=== PATIENT | female | born 1980 | race Caucasian/White ===

== ENCOUNTER 2018-04-22 18:56 | Inpatient (IN) ==
[2018-04-22 20:05] LABS: Bilirubin,Urine Negative (Negative); Blood,Urine Negative (Negative); Clarity,Urine Cloudy (Clear); Color,Urine Yellow (Yellow); Glucose,Urine (UA) Normal (Normal); Ketones,Urine Negative (Negative); Leukocyte Esterase,Urine Moderate (Negative); Nitrite,Urine Positive (Negative); Protein,Urine Trace mg/dL (Neg-Trace); Specific Gravity,Urine 1.023 (1.010-1.025); Urobilinogen,Urine Normal (Normal)
[2018-04-22 20:09] LABS: Bacteria,Urine Many per hpf (None-Few); Hyaline Casts,Urine None Seen per lpf (None-Few); Squamous Epithelial Cell,Urine Many per lpf (None-Few); WBC,Urine TNTC per hpf (0-3)
[2018-04-22 20:15] LABS: Amphetamine Screen,Urine Negative ng/mL (Cutoff=1000); Barbiturate Screen,Urine Negative ng/mL (Cutoff=200); Benzodiazepines Screen,Urine Negative ng/mL (Cutoff=200); Cannabinoid Screen,Urine Negative ng/mL (Cutoff = 50); Cocaine Screen,Urine Negative ng/mL (Cutoff= 300); Opiate Screen,Urine Negative ng/mL (Cutoff=300); Phencyclidine Screen,Urine Negative ng/mL (Cutoff=25)
--- NOTE | 2018-04-22 20:49 | Emergency Department Note ---
Disposition Clinical Impression: Auditory hallucination UTI (urinary tract infection) Qualifiers: Urinary tract infection type: acute cystitis Hematuria presence: without hematuria Qualified Code(s): N30.00 - Acute cystitis without hematuria Disposition: Still a Patient Condition: Good Referrals: NONE,PCP [Primary Care Provider] - Forms: ED Satisfaction Letter Time of Disposition: 21:37 General Adult HPI - General Chief complaint: ED Psychiatric Symptoms Stated complaint: Psych eval Time Seen by Provider: 04/22/18 19:32 Source: patient Limitations: no limitations Nursing Notes Reviewed: Yes Vital Signs Reviewed: Yes - History of Present Illness HPI Narrative: Patient presents with her family and the stories that she does have a history of schizophrenia and has not used medications and the last several months did see mental health about 5 days ago and they said they will call in medicine but when they showed up at the pharmacy there were no medications there and the patient has been crying all day according to the patient's mother who is here. The patient does live with her mother. There are other family members here also. Patient at one point said she had some suicidal thoughts and she does have auditory hallucinations however later states that she did not have suicidal thoughts so this is slightly hard to assess. She did make one comment earlier today about not getting around much longer but the family did not know exactly what she meant by that. Patient states he does not have a suicidal plan. She denies any pain in the head, neck, chest, abdomen or back. No fever or vomiting. No blood in the urine or stool. Social history: Smoker, no alcohol or drugs Pain Scale: 0 - Related Data Home Medications Medication Instructions Recorded Confirmed Gabapentin [Neurontin] 600 mg PO TID 03/22/18 03/22/18 Mirtazapine 45 mg PO HS 03/22/18 03/22/18 Propranolol HCl 40 mg PO TID 03/22/18 03/22/18 lamoTRIgine [Lamotrigine] 200 mg PO HS 03/22/18 03/22/18 Previous Rx's Medication Instructions Recorded cephALEXin [Keflex] 500 mg PO BID #10 capsule 03/24/18 Allergies Allergy/AdvReac Type Severity Reaction Status Date / Time No Known Allergies Allergy Verified 05/05/17 14:45 All systems ED: reviewed and negative except as stated. Past Medical History - Past Medical History Medical history: Reports: no medical history Surgical history: Reports: no surgical history Psychiatric history: Reports: anxiety, depression, other - Social History Smoking Status: Current every day smoker Smokeless Tobacco Status: No Alcohol use: Reports: none Drug use: Reports: none Physical Exam CONSTITUTIONAL: Alert and oriented X3, and she does know the year and the name of the hospital, she is very soft-spoken, poor eye contact, well-nourished, well appearing, in no apparent distress HEAD: Normocephalic; atraumatic. EYES: PERRL, no scleral icterus. NOSE: The nose is normal in appearance without rhinorrhea RESP: Normal chest excursion with respiration; breath sounds clear and equal bilaterally; no wheezes, rhonchi, or rales CARD: Regular rhythm, without murmurs, rub or gallop ABD: Non-distended; non-tender, soft,without rigidity, rebound or guarding SKIN: Normal for age and race; warm and dry; there are intermittent scattered noninfected excoriated lesions on her back - General Limitations: no limitations General appearance: alert, in no apparent distress Course Vital Signs Temperature 98.1 F 04/22/18 19:06 Pulse Rate 80 04/22/18 19:06 Respiratory Rate 18 04/22/18 19:06 Blood Pressure 132/77 04/22/18 19:06 O2 Sat by Pulse Oximetry 97 04/22/18 19:06 Temperature 98.1 F 04/22/18 19:06 Pulse Rate 80 04/22/18 19:06 Respiratory Rate 18 04/22/18 19:06 Blood Pressure 132/77 04/22/18 19:06 O2 Sat by Pulse Oximetry 97 04/22/18 19:06 Oxygen Delivery Oxygen Delivery Room Air Medical Decision Making - MDM Narrative Medical decision making narrative: Is difficult to ascertain whether this patient has suicidal ideation and she certainly does have auditory hallucinations and has been crying all day so I will get an initial assessment here as well as asked the psychiatric services to assess the patient and let and their expertise to recommendations for further disposition. 2049 - Lab Data Result diagrams: 04/22/18 20:25 04/22/18 20:25 Lab Results 04/22/18 04/22/18 04/22/18 Range/Units 19:20 19:20 20:25 WBC 7.7 (4.3-11.1) K/mcL RBC 4.72 (3.82-4.97) M/mcL Hgb 14.0 (11.5-15.4) g/dL Hct 42.7 (35.3-44.9) % MCV 90.5 (83.0-100.0) fL MCH 29.7 (28.0-33.3) pg MCHC 32.8 (31.6-35.5) g/dL RDW 12.8 (11.5-14.5) % Plt Count 197 (140-400) K/mcL MPV 11.5 (9.4-12.4) fL Immature Gran % 0.1 (0-4) % Seg Neutrophils % 57.8 % Lymphocytes % 34.0 % Monocytes % 6.8 % Eosinophils % 0.9 % Basophils % 0.4 % Neutrophils # 4.5 (1.6-8.9) K/mcL Lymphocytes # 2.6 (0.6-4.6) K/mcL Monocytes # 0.5 (0.0-1.3) K/mcL Eosinophils # 0.1 (0.0-0.6) K/mcL Basophils # 0.0 (0.0-0.2) K/mcL Sodium (136-145) mEq/L Potassium (3.5-5.1) mEq/L Chloride (98-107) mEq/L Carbon Dioxide (23-29) mEq/L BUN (6-20) mg/dL Creatinine (0.60-1.20) mg/dL Est GFR ( Amer) (> 60) Est GFR (Non-Af Amer) (> 60) BUN/Creatinine Ratio (6-26) Glucose (70-105) mg/dL Calculated Osmolality (280-300) Calcium (8.6-10.3) mg/dL Urine Color Yellow (Yellow) Urine Clarity Cloudy A (Clear) Urine pH 6.0 (5.0-8.0) pH Units Ur Specific [place] 1.023 (1.010-1.025) Urine Protein Trace (Neg-Trace) mg/dL Urine Glucose (UA) Normal (Normal) mg/dL Urine Ketones Negative (Negative) mg/dL Urine Blood Negative (Negative) Urine Nitrite Positive A (Negative) Urine Bilirubin Negative (Negative) Urine Urobilinogen Normal (Normal) mg/dL Ur Leukocyte Esterase Moderate H (Negative) Urine Microscopic RBC 5-15 H (0-3) per hpf Urine Microscopic WBC TNTC H (0-3) per hpf Ur Squamous Epith Cells Many H (None-Few) per lpf Urine Bacteria Many H (None-Few) per hpf Hyaline Casts None Seen (None-Few) per lpf Salicylates (15.0-30.0) mg/dL Urine Opiates Screen Negative (Qnkbjo=480) ng/mL Acetaminophen (10-20) mcg/mL Ur Barbiturates Screen Negative (Bxmnef=409) ng/mL Ur Phencyclidine Scrn Negative (Cutoff=25) ng/mL Ur Amphetamines Screen Negative (Xqquic=5053) ng/mL U Benzodiazepines Scrn Negative (Gasadj=216) ng/mL Urine Cocaine Screen Negative (Cutoff= 300) ng/mL U Marijuana (THC) Screen Negative (Cutoff = 50) ng/mL Ur Drug Screen Interp See Below Ethyl Alcohol (Less than 10) mg/dL 04/22/18 Range/Units 20:25 WBC (4.3-11.1) K/mcL RBC (3.82-4.97) M/mcL Hgb (11.5-15.4) g/dL Hct (35.3-44.9) % MCV (83.0-100.0) fL MCH (28.0-33.3) pg MCHC (31.6-35.5) g/dL RDW (11.5-14.5) % Plt Count (140-400) K/mcL MPV (9.4-12.4) fL Immature Gran % (0-4) % Seg Neutrophils % % Lymphocytes % % Monocytes % % Eosinophils % % Basophils % % Neutrophils # (1.6-8.9) K/mcL Lymphocytes # (0.6-4.6) K/mcL Monocytes # (0.0-1.3) K/mcL Eosinophils # (0.0-0.6) K/mcL Basophils # (0.0-0.2) K/mcL Sodium 139 (136-145) mEq/L Potassium 4.3 (3.5-5.1) mEq/L Chloride 106 (98-107) mEq/L Carbon Dioxide 26 (23-29) mEq/L BUN 12 (6-20) mg/dL Creatinine 0.74 (0.60-1.20) mg/dL Est GFR ( Amer) > 60 (> 60) Est GFR (Non-Af Amer) > 60 (> 60) BUN/Creatinine Ratio 16 (6-26) Glucose 113 H (70-105) mg/dL Calculated Osmolality 289 (280-300) Calcium 9.7 (8.6-10.3) mg/dL Urine Color (Yellow) Urine Clarity (Clear) Urine pH (5.0-8.0) pH Units Ur Specific [place] (1.010-1.025) Urine Protein (Neg-Trace) mg/dL Urine Glucose (UA) (Normal) mg/dL Urine Ketones (Negative) mg/dL Urine Blood (Negative) Urine Nitrite (Negative) Urine Bilirubin (Negative) Urine Urobilinogen (Normal) mg/dL Ur Leukocyte Esterase (Negative) Urine Microscopic RBC (0-3) per hpf Urine Microscopic WBC (0-3) per hpf Ur Squamous Epith Cells (None-Few) per lpf Urine Bacteria (None-Few) per hpf Hyaline Casts (None-Few) per lpf Salicylates < 2.5 L (15.0-30.0) mg/dL Urine Opiates Screen (Danrxu=190) ng/mL Acetaminophen < 10 L (10-20) mcg/mL Ur Barbiturates Screen (Ykwecl=056) ng/mL Ur Phencyclidine Scrn (Cutoff=25) ng/mL Ur Amphetamines Screen (Amhuun=7832) ng/mL U Benzodiazepines Scrn (Yaddha=229) ng/mL Urine Cocaine Screen (Cutoff= 300) ng/mL U Marijuana (THC) Screen (Cutoff = 50) ng/mL Ur Drug Screen Interp Ethyl Alcohol < 10 (Less than 10) mg/dL
[2018-04-22 20:51] LABS: Basophils % 0.4 %; Eosinophils # 0.1 K/mcL (0.0-0.6); Eosinophils % 0.9 %; Hematocrit 42.7 % (35.3-44.9); Immature Granulocytes % 0.1 % (0-4); Lymphocytes # 2.6 K/mcL (0.6-4.6); Mean Corpuscular HGB Conc 32.8 g/dL (31.6-35.5); Mean Corpuscular Hemoglobin 29.7 pg (28.0-33.3); Mean Corpuscular Volume 90.5 fL (83.0-100.0); Mean Platelet Volume 11.5 fL (9.4-12.4); Monocytes # 0.5 K/mcL (0.0-1.3); Monocytes % 6.8 %; Neutrophils # 4.5 K/mcL (1.6-8.9); Platelet Count 197 K/mcL (140-400); Red Blood Count 4.72 M/mcL (3.82-4.97); Red Cell Distribution Width 12.8 % (11.5-14.5); Segmented Neutrophils % 57.8 %
[2018-04-22 21:09] LABS: Acetaminophen < 10 mcg/mL (10-20); BUN/Creatinine Ratio 16 (6-26); Blood Urea Nitrogen 12 mg/dL (6-20); Calcium 9.7 mg/dL (8.6-10.3); Carbon Dioxide 26 mEq/L (23-29); Chloride 106 mEq/L (98-107); Ethanol < 10 mg/dL (Less than 10); Glucose 113 mg/dL (70-105); Osmolality,Calculated 289 (280-300); Potassium 4.3 mEq/L (3.5-5.1); Salicylate < 2.5 mg/dL (15.0-30.0); Sodium 139 mEq/L (136-145); eGFR For Non-African Americans > 60 (> 60)
[2018-04-22] MEDS ORDERED: Nitrofurantoin (BID) 100 MG CAPSULE PO STA (21:36)
--- NOTE | 2018-04-22 21:47 | Emergency Department Note ---
Disposition Clinical Impression: Auditory hallucination UTI (urinary tract infection) Qualifiers: Urinary tract infection type: acute cystitis Hematuria presence: without hematuria Qualified Code(s): N30.00 - Acute cystitis without hematuria Disposition: Still a Patient Condition: Good Referrals: NONE,PCP [Primary Care Provider] - Forms: ED Satisfaction Letter General Adult HPI - General Chief complaint: ED Psychiatric Symptoms Stated complaint: Psych eval Time Seen by Provider: 04/22/18 19:32 Source: patient Limitations: no limitations - History of Present Illness Pain Scale: 0 - Related Data Home Medications Medication Instructions Recorded Confirmed Gabapentin [Neurontin] 600 mg PO TID 03/22/18 03/22/18 Mirtazapine 45 mg PO HS 03/22/18 03/22/18 Propranolol HCl 40 mg PO TID 03/22/18 03/22/18 lamoTRIgine [Lamotrigine] 200 mg PO HS 03/22/18 03/22/18 Previous Rx's Medication Instructions Recorded cephALEXin [Keflex] 500 mg PO BID #10 capsule 03/24/18 Allergies Allergy/AdvReac Type Severity Reaction Status Date / Time No Known Allergies Allergy Verified 05/05/17 14:45 Past Medical History - Past Medical History Medical history: Reports: no medical history Surgical history: Reports: no surgical history Psychiatric history: Reports: anxiety, depression, other - Social History Smoking Status: Current every day smoker Smokeless Tobacco Status: No Alcohol use: Reports: none Drug use: Reports: none Physical Exam - General Limitations: no limitations General appearance: alert, in no apparent distress Course - Reevaluation(s) Reevaluation #1: She received in sign out at 2200 by the departing emergency attending Dr. Al Bee. Please see copy of his note for details of the initial evaluation H&P. Briefly patient is history of schizophrenia and mental health disorders as having persecutory auditory hallucinations. Patient has been medically cleared for pink slip is in the chart patient will be evaluated by mental health services. Disposition pending Time: 21:46 Vital Signs Temperature 98.1 F 04/22/18 19:06 Pulse Rate 80 04/22/18 19:06 Respiratory Rate 18 04/22/18 19:06 Blood Pressure 132/77 04/22/18 19:06 O2 Sat by Pulse Oximetry 97 04/22/18 19:06 Temperature 98.1 F 04/22/18 19:06 Pulse Rate 80 04/22/18 19:06 Respiratory Rate 18 04/22/18 19:06 Blood Pressure 132/77 04/22/18 19:06 O2 Sat by Pulse Oximetry 97 04/22/18 19:06 Oxygen Delivery Oxygen Delivery Room Air Medical Decision Making - Lab Data Result diagrams: 04/22/18 20:25 04/22/18 20:25 Lab Results 04/22/18 04/22/18 04/22/18 Range/Units 19:20 19:20 20:25 WBC 7.7 (4.3-11.1) K/mcL RBC 4.72 (3.82-4.97) M/mcL Hgb 14.0 (11.5-15.4) g/dL Hct 42.7 (35.3-44.9) % MCV 90.5 (83.0-100.0) fL MCH 29.7 (28.0-33.3) pg MCHC 32.8 (31.6-35.5) g/dL RDW 12.8 (11.5-14.5) % Plt Count 197 (140-400) K/mcL MPV 11.5 (9.4-12.4) fL Immature Gran % 0.1 (0-4) % Seg Neutrophils % 57.8 % Lymphocytes % 34.0 % Monocytes % 6.8 % Eosinophils % 0.9 % Basophils % 0.4 % Neutrophils # 4.5 (1.6-8.9) K/mcL Lymphocytes # 2.6 (0.6-4.6) K/mcL Monocytes # 0.5 (0.0-1.3) K/mcL Eosinophils # 0.1 (0.0-0.6) K/mcL Basophils # 0.0 (0.0-0.2) K/mcL Sodium (136-145) mEq/L Potassium (3.5-5.1) mEq/L Chloride (98-107) mEq/L Carbon Dioxide (23-29) mEq/L BUN (6-20) mg/dL Creatinine (0.60-1.20) mg/dL Est GFR ( Amer) (> 60) Est GFR (Non-Af Amer) (> 60) BUN/Creatinine Ratio (6-26) Glucose (70-105) mg/dL Calculated Osmolality (280-300) Calcium (8.6-10.3) mg/dL Urine Color Yellow (Yellow) Urine Clarity Cloudy A (Clear) Urine pH 6.0 (5.0-8.0) pH Units Ur Specific [place] 1.023 (1.010-1.025) Urine Protein Trace (Neg-Trace) mg/dL Urine Glucose (UA) Normal (Normal) mg/dL Urine Ketones Negative (Negative) mg/dL Urine Blood Negative (Negative) Urine Nitrite Positive A (Negative) Urine Bilirubin Negative (Negative) Urine Urobilinogen Normal (Normal) mg/dL Ur Leukocyte Esterase Moderate H (Negative) Urine Microscopic RBC 5-15 H (0-3) per hpf Urine Microscopic WBC TNTC H (0-3) per hpf Ur Squamous Epith Cells Many H (None-Few) per lpf Urine Bacteria Many H (None-Few) per hpf Hyaline Casts None Seen (None-Few) per lpf Salicylates (15.0-30.0) mg/dL Urine Opiates Screen Negative (Igmrqx=883) ng/mL Acetaminophen (10-20) mcg/mL Ur Barbiturates Screen Negative (Osnacc=024) ng/mL Ur Phencyclidine Scrn Negative (Cutoff=25) ng/mL Ur Amphetamines Screen Negative (Ylvqit=7077) ng/mL U Benzodiazepines Scrn Negative (Dmkovq=822) ng/mL Urine Cocaine Screen Negative (Cutoff= 300) ng/mL U Marijuana (THC) Screen Negative (Cutoff = 50) ng/mL Ur Drug Screen Interp See Below Ethyl Alcohol (Less than 10) mg/dL 04/22/18 Range/Units 20:25 WBC (4.3-11.1) K/mcL RBC (3.82-4.97) M/mcL Hgb (11.5-15.4) g/dL Hct (35.3-44.9) % MCV (83.0-100.0) fL MCH (28.0-33.3) pg MCHC (31.6-35.5) g/dL RDW (11.5-14.5) % Plt Count (140-400) K/mcL MPV (9.4-12.4) fL Immature Gran % (0-4) % Seg Neutrophils % % Lymphocytes % % Monocytes % % Eosinophils % % Basophils % % Neutrophils # (1.6-8.9) K/mcL Lymphocytes # (0.6-4.6) K/mcL Monocytes # (0.0-1.3) K/mcL Eosinophils # (0.0-0.6) K/mcL Basophils # (0.0-0.2) K/mcL Sodium 139 (136-145) mEq/L Potassium 4.3 (3.5-5.1) mEq/L Chloride 106 (98-107) mEq/L Carbon Dioxide 26 (23-29) mEq/L BUN 12 (6-20) mg/dL Creatinine 0.74 (0.60-1.20) mg/dL Est GFR ( Amer) > 60 (> 60) Est GFR (Non-Af Amer) > 60 (> 60) BUN/Creatinine Ratio 16 (6-26) Glucose 113 H (70-105) mg/dL Calculated Osmolality 289 (280-300) Calcium 9.7 (8.6-10.3) mg/dL Urine Color (Yellow) Urine Clarity (Clear) Urine pH (5.0-8.0) pH Units Ur Specific [place] (1.010-1.025) Urine Protein (Neg-Trace) mg/dL Urine Glucose (UA) (Normal) mg/dL Urine Ketones (Negative) mg/dL Urine Blood (Negative) Urine Nitrite (Negative) Urine Bilirubin (Negative) Urine Urobilinogen (Normal) mg/dL Ur Leukocyte Esterase (Negative) Urine Microscopic RBC (0-3) per hpf Urine Microscopic WBC (0-3) per hpf Ur Squamous Epith Cells (None-Few) per lpf Urine Bacteria (None-Few) per hpf Hyaline Casts (None-Few) per lpf Salicylates < 2.5 L (15.0-30.0) mg/dL Urine Opiates Screen (Yrdart=288) ng/mL Acetaminophen < 10 L (10-20) mcg/mL Ur Barbiturates Screen (Xwuqhx=829) ng/mL Ur Phencyclidine Scrn (Cutoff=25) ng/mL Ur Amphetamines Screen (Sraurb=3729) ng/mL U Benzodiazepines Scrn (Hgwoxg=447) ng/mL Urine Cocaine Screen (Cutoff= 300) ng/mL U Marijuana (THC) Screen (Cutoff = 50) ng/mL Ur Drug Screen Interp Ethyl Alcohol < 10 (Less than 10) mg/dL
--- NOTE | 2018-04-23 01:14 | Emergency Department Note ---
Disposition Clinical Impression: Auditory hallucination UTI (urinary tract infection) Qualifiers: Urinary tract infection type: acute cystitis Hematuria presence: without hematuria Qualified Code(s): N30.00 - Acute cystitis without hematuria Disposition: Admitted As Inpatient Condition: Good Prescriptions: Nitrofurantoin Monohyd/M-Cryst [Macrobid 100 mg Capsule] 100 mg PO BID #14 capsule Referrals: NONE,PCP [Primary Care Provider] - Forms: ED Satisfaction Letter General Adult HPI - General Chief complaint: ED Psychiatric Symptoms Stated complaint: Psych eval Time Seen by Provider: 04/22/18 19:32 Source: patient Limitations: no limitations - History of Present Illness Pain Scale: 0 - Related Data Home Medications Medication Instructions Recorded Confirmed Gabapentin [Neurontin] 600 mg PO TID 03/22/18 03/22/18 Mirtazapine 45 mg PO HS 03/22/18 03/22/18 Propranolol HCl 40 mg PO TID 03/22/18 03/22/18 lamoTRIgine [Lamotrigine] 200 mg PO HS 03/22/18 03/22/18 Previous Rx's Medication Instructions Recorded cephALEXin [Keflex] 500 mg PO BID #10 capsule 03/24/18 Nitrofurantoin Monohyd/M-Cryst 100 mg PO BID #14 capsule 04/23/18 [Macrobid 100 mg Capsule] Allergies Allergy/AdvReac Type Severity Reaction Status Date / Time No Known Allergies Allergy Verified 05/05/17 14:45 Past Medical History - Past Medical History Medical history: Reports: no medical history Surgical history: Reports: no surgical history Psychiatric history: Reports: anxiety, depression, other - Social History Smoking Status: Current every day smoker Smokeless Tobacco Status: No Alcohol use: Reports: none Drug use: Reports: none Physical Exam - General Limitations: no limitations General appearance: alert, in no apparent distress Course Course Narrative: This patient was signed out to me at shift change from Dr. Hewitt after being signed out from Dr. Bee. Shift change patient has been medically cleared and is awaiting psychiatric evaluation. Patient was seen and evaluated in the emergency department by the [address] psychiatry department and after evaluation patient is being admitted to the [address] psychiatric unit. Vital Signs Temperature 98.1 F 04/22/18 19:06 Pulse Rate 80 04/22/18 19:06 Respiratory Rate 18 04/22/18 19:06 Blood Pressure 132/77 04/22/18 19:06 O2 Sat by Pulse Oximetry 97 04/22/18 19:06 Temperature 98.1 F 04/22/18 19:06 Pulse Rate 80 04/22/18 19:06 Respiratory Rate 18 04/22/18 19:06 Blood Pressure 132/77 04/22/18 19:06 O2 Sat by Pulse Oximetry 97 04/22/18 19:06 Oxygen Delivery Oxygen Delivery Room Air Medical Decision Making - Lab Data Result diagrams: 04/22/18 20:25 04/22/18 20:25 Lab Results 04/22/18 04/22/18 04/22/18 Range/Units 19:20 19:20 20:25 WBC 7.7 (4.3-11.1) K/mcL RBC 4.72 (3.82-4.97) M/mcL Hgb 14.0 (11.5-15.4) g/dL Hct 42.7 (35.3-44.9) % MCV 90.5 (83.0-100.0) fL MCH 29.7 (28.0-33.3) pg MCHC 32.8 (31.6-35.5) g/dL RDW 12.8 (11.5-14.5) % Plt Count 197 (140-400) K/mcL MPV 11.5 (9.4-12.4) fL Immature Gran % 0.1 (0-4) % Seg Neutrophils % 57.8 % Lymphocytes % 34.0 % Monocytes % 6.8 % Eosinophils % 0.9 % Basophils % 0.4 % Neutrophils # 4.5 (1.6-8.9) K/mcL Lymphocytes # 2.6 (0.6-4.6) K/mcL Monocytes # 0.5 (0.0-1.3) K/mcL Eosinophils # 0.1 (0.0-0.6) K/mcL Basophils # 0.0 (0.0-0.2) K/mcL Sodium (136-145) mEq/L Potassium (3.5-5.1) mEq/L Chloride (98-107) mEq/L Carbon Dioxide (23-29) mEq/L BUN (6-20) mg/dL Creatinine (0.60-1.20) mg/dL Est GFR ( Amer) (> 60) Est GFR (Non-Af Amer) (> 60) BUN/Creatinine Ratio (6-26) Glucose (70-105) mg/dL Calculated Osmolality (280-300) Calcium (8.6-10.3) mg/dL Urine Color Yellow (Yellow) Urine Clarity Cloudy A (Clear) Urine pH 6.0 (5.0-8.0) pH Units Ur Specific [place] 1.023 (1.010-1.025) Urine Protein Trace (Neg-Trace) mg/dL Urine Glucose (UA) Normal (Normal) mg/dL Urine Ketones Negative (Negative) mg/dL Urine Blood Negative (Negative) Urine Nitrite Positive A (Negative) Urine Bilirubin Negative (Negative) Urine Urobilinogen Normal (Normal) mg/dL Ur Leukocyte Esterase Moderate H (Negative) Urine Microscopic RBC 5-15 H (0-3) per hpf Urine Microscopic WBC TNTC H (0-3) per hpf Ur Squamous Epith Cells Many H (None-Few) per lpf Urine Bacteria Many H (None-Few) per hpf Hyaline Casts None Seen (None-Few) per lpf Salicylates (15.0-30.0) mg/dL Urine Opiates Screen Negative (Lcrstm=436) ng/mL Acetaminophen (10-20) mcg/mL Ur Barbiturates Screen Negative (Vcbvvh=845) ng/mL Ur Phencyclidine Scrn Negative (Cutoff=25) ng/mL Ur Amphetamines Screen Negative (Sfccyw=8491) ng/mL U Benzodiazepines Scrn Negative (Mxdbfc=687) ng/mL Urine Cocaine Screen Negative (Cutoff= 300) ng/mL U Marijuana (THC) Screen Negative (Cutoff = 50) ng/mL Ur Drug Screen Interp See Below Ethyl Alcohol (Less than 10) mg/dL 04/22/18 Range/Units 20:25 WBC (4.3-11.1) K/mcL RBC (3.82-4.97) M/mcL Hgb (11.5-15.4) g/dL Hct (35.3-44.9) % MCV (83.0-100.0) fL MCH (28.0-33.3) pg MCHC (31.6-35.5) g/dL RDW (11.5-14.5) % Plt Count (140-400) K/mcL MPV (9.4-12.4) fL Immature Gran % (0-4) % Seg Neutrophils % % Lymphocytes % % Monocytes % % Eosinophils % % Basophils % % Neutrophils # (1.6-8.9) K/mcL Lymphocytes # (0.6-4.6) K/mcL Monocytes # (0.0-1.3) K/mcL Eosinophils # (0.0-0.6) K/mcL Basophils # (0.0-0.2) K/mcL Sodium 139 (136-145) mEq/L Potassium 4.3 (3.5-5.1) mEq/L Chloride 106 (98-107) mEq/L Carbon Dioxide 26 (23-29) mEq/L BUN 12 (6-20) mg/dL Creatinine 0.74 (0.60-1.20) mg/dL Est GFR ( Amer) > 60 (> 60) Est GFR (Non-Af Amer) > 60 (> 60) BUN/Creatinine Ratio 16 (6-26) Glucose 113 H (70-105) mg/dL Calculated Osmolality 289 (280-300) Calcium 9.7 (8.6-10.3) mg/dL Urine Color (Yellow) Urine Clarity (Clear) Urine pH (5.0-8.0) pH Units Ur Specific [place] (1.010-1.025) Urine Protein (Neg-Trace) mg/dL Urine Glucose (UA) (Normal) mg/dL Urine Ketones (Negative) mg/dL Urine Blood (Negative) Urine Nitrite (Negative) Urine Bilirubin (Negative) Urine Urobilinogen (Normal) mg/dL Ur Leukocyte Esterase (Negative) Urine Microscopic RBC (0-3) per hpf Urine Microscopic WBC (0-3) per hpf Ur Squamous Epith Cells (None-Few) per lpf Urine Bacteria (None-Few) per hpf Hyaline Casts (None-Few) per lpf Salicylates < 2.5 L (15.0-30.0) mg/dL Urine Opiates Screen (Sbndin=961) ng/mL Acetaminophen < 10 L (10-20) mcg/mL Ur Barbiturates Screen (Egafly=242) ng/mL Ur Phencyclidine Scrn (Cutoff=25) ng/mL Ur Amphetamines Screen (Cewipq=2430) ng/mL U Benzodiazepines Scrn (Twhkvi=838) ng/mL Urine Cocaine Screen (Cutoff= 300) ng/mL U Marijuana (THC) Screen (Cutoff = 50) ng/mL Ur Drug Screen Interp Ethyl Alcohol < 10 (Less than 10) mg/dL
[2018-04-23] MEDS ORDERED: *HR* LORazepam 2 MG/ML VIAL IM PRN (01:32)
[2018-04-23] MEDS ORDERED: Haloperidol Lactate 5 MG/ML VIAL IM PRN (01:32)
[2018-04-23] MEDS ORDERED: Mag Hydrox/Al Hydrox/Simeth 30 ML UDC PO PRN (01:32)
[2018-04-23] MEDS ORDERED: MOM Conc 10 ML UD.LIQ PO PRN (01:32)
[2018-04-23] MEDS ORDERED: Ibuprofen 400 MG TABLET PO PRN (01:32)
[2018-04-23] MEDS ORDERED: *HR* LORazepam 1 MG TABLET PO PRN (01:32)
--- NOTE | 2018-04-23 11:43 | Psychiatry History & Physical ---
Date of Encounter: 04/23/18 Time of Encounter: 11:33 History of Present Illness Patient Stated Chief Complaint: psychosis Medicare Admission Attestation: For traditional Medicare patients the provided hospital inpatient services are reasonable and necessary and in the case of services not specified as inpatient-only under 42 CFR 419.22 (n), that they are appropriately provided as inpatient services in accordance 42 CFR 412.3. For Critical Access Hospital the patient may reasonably be expected to be discharged or transferred to a hospital within 96 hours after admission to the Critical Access Hospital. Admitted From: Home Plans for Post Hospital Care: Home History of Present Illness: Ms. Bello is a 37 year old female who was admitted secondary to AH and paranoia. Client was just admitted to at the end of February. At that time she was in acute benzo withdrawal. She was only on the unit a short time but cleared quickly. She was discharged with her regular home meds (Lamictal, Neurontin, Propranolol) and an Ativan taper. She was scheduled to follow up at the [facility]. Client reports she took the Ativan taper as prescribed. She reports attending the [place] appointment but that the visit was very brief because she had an abscess on her back at the time and the provider she saw took her over to be seen by someone for the abscess. Client is back in the hospital today due to symptoms of psychosis. She denies being back on benzodiazepines. She denies taking any other recreational substances. Her tox screen is negative. Client reports she stopped her home meds of Lamictal, Neurontin, and Propranolol because they were making her feel sluggish and dizzy. However, she has deteriorated from a mental health standpoint. She reports hearing voices from the TV. She is paranoid that her family is turning against her. She is scared to leave the home. Looks depressed and anxious. She is not overtly psychotic like last time. Clinical presentation is different. Last time she looked like she was in active withdrawal. This time she looks more like she is having a psychotic depression. Since she has been off her home meds for a while will look at making changes. Would benefit from an SSRI and antipsychotic. Client is agreeable to all treatment recommendations. She denies SI/HI. Physically healthy except for Hep C. However, she appears underweight. Edentulous. Lives at home with family and has supports. Will need follow up arranged through the [facility] once she is doing better Past Med Surg Social Fam HX - Past Medical History Medical history: other - Past Psychiatric History Psychiatric history: Reports: anxiety, depression, previous psychiatric hospitalization Family psychiatric history: Unknown Family History of Suicide: Unknown - Past Surgical History Surgical History: no surgical history - Social History Smoking Status: Current every day smoker Smokeless Tobacco Status: No Alcohol use: none Drug use: none - Family History Father Adopted: [place]: José Bello Age: 71 Family Member Ethnicity: Non- Living Status: Still Living Hx Family Cardiac Disorders: Yes (IN) Hx Family Respiratory Disorders: No Hx Family Cancer: Yes (Skin Cancer) Hx Family GI Disorders: No Hx Family Genitourinary Disorders: No Hx Family Endocrine Disorder: No Hx Family Musculoskeletal Disorders: No Hx Family Neuromuscular Disorders: No Hx Family Neurologic Disorders: No Hx Family HEENT Disorders: No Hx Family Autoimmune Disorders: No Hx Family Reproductive Disorders: No Hx Family Psychosocial Disorders: No Hx Family Medical Disorders: No Medications & Allergies Gabapentin [Neurontin] 600 mg PO TID 03/22/18 [History] Mirtazapine 45 mg PO HS 03/22/18 [History] Propranolol HCl 40 mg PO TID 03/22/18 [History] lamoTRIgine [Lamotrigine] 200 mg PO HS 03/22/18 [History] cephALEXin [Keflex] 500 mg PO BID #10 capsule 03/24/18 [Rx] Nitrofurantoin Monohyd/M-Cryst [Macrobid 100 mg Capsule] 100 mg PO BID #14 capsule 04/23/18 [Rx] Allergy/AdvReac Type Severity Reaction Status Date / Time No Known Allergies Allergy Verified 05/05/17 14:45 Review of Systems Constitutional: Denies: fever, chills, weakness, weight change Eyes: Denies: eye pain, vision change Ears, Nose, Throat: Denies: ear pain, throat pain, dental pain, hearing loss, congestion Cardiovascular: Denies: chest pain, palpitations, dyspnea on exertion Respiratory: Denies: cough, dyspnea, wheezes Gastrointestinal: Denies: abdominal pain, nausea, vomiting, diarrhea, constipation Genitourinary female: Denies: urgency, dysuria, frequency, abnormal menses, dyspareunia Musculoskeletal: Denies: joint swelling, joint pain Integumentary: Denies: rash, lesions, pruritus Neurological: Denies: headache, weakness, numbness, memory loss Endocrine: Denies: fatigue, heat or cold intolerance Hematologic/Lymphatic: Denies: easy bruising, lymphadenopathy Allergic/Immunologic: Denies: urticaria, itchy eyes Exam - HEENT Head exam IM: Present: atraumatic Eye exam IM: Present: EOMI, normal appearance, PERRL ENT exam IM: Present: normal exam - Neurological Neurological exam: Present: CN II-XII intact - Respiratory Respiratory exam IM: Present: CTAB - GI/Abdominal GI/Abdominal exam IM: Present: bruit - Extremities Extremities exam IM: Present: full ROM - Skin Skin exam IM: Present: dry, warm - Constitutional Vitals: Temp Pulse Resp BP Pulse Ox 98.3 F 98 16 119/86 98 04/23/18 09:00 04/23/18 09:00 04/23/18 09:00 04/23/18 09:00 04/23/18 09:00 General appearance: thin - Musculoskeletal Gait: normal Station: relaxed Strength & Tone: normal for patient - Psychiatric Patient Orientation: Yes Person, Yes Time, Yes Place Level of alertness: Alert Behavior: anxious Psychomotor activity: Normal Eye Contact: Maintains Eye Contact Mood Description: Depressed, Anxious Affect description: congruent with mood Speech Volume: Soft/Quiet Speech pattern: normal rate, normal rhythm, normal tone, fluent, spontaneous Language & Vocabulary: consistent with education Thought Process: Linear Thought Content: No Suicidal ideation, No Homicidal ideation, Yes Paranoid delusion Perceptual Disturbances: Yes Auditory hallucinations Attention Span Ability: Capable of Focused Attention Memory Description: Grossly Intact Patient Reliability: Reliable Historian Fund of knowledge: Yes abstraction ability, Yes average, Yes aware of current events Intelligence Estimate: Average Judgment: Fair Insight: Partial Results - Drug Levels and Toxicology Drug Levels and Toxicology: Drug Levels and Toxicity 04/22/18 04/22/18 19:20 20:25 Urine Opiates Screen Negative Acetaminophen < 10 L Ur Barbiturates Screen Negative Ur Phencyclidine Scrn Negative Ur Amphetamines Screen Negative U Benzodiazepines Scrn Negative Urine Cocaine Screen Negative U Marijuana (THC) Screen Negative Ethyl Alcohol < 10 - Labs Labs: Laboratory Last Values WBC 7.7 K/mcL (4.3-11.1) 04/22/18 20:25 RBC 4.72 M/mcL (3.82-4.97) 04/22/18 20:25 Hgb 14.0 g/dL (11.5-15.4) 04/22/18 20:25 Hct 42.7 % (35.3-44.9) 04/22/18 20:25 MCV 90.5 fL (83.0-100.0) 04/22/18 20:25 MCH 29.7 pg (28.0-33.3) 04/22/18 20:25 MCHC 32.8 g/dL (31.6-35.5) 04/22/18 20:25 RDW 12.8 % (11.5-14.5) 04/22/18 20:25 Plt Count 197 K/mcL (140-400) 04/22/18 20:25 MPV 11.5 fL (9.4-12.4) 04/22/18 20:25 Immature Gran % 0.1 % (0-4) 04/22/18 20:25 Seg Neutrophils % 57.8 % 04/22/18 20:25 Lymphocytes % 34.0 % 04/22/18 20:25 Monocytes % 6.8 % 04/22/18 20:25 Eosinophils % 0.9 % 04/22/18 20:25 Basophils % 0.4 % 04/22/18 20:25 Neutrophils # 4.5 K/mcL (1.6-8.9) 04/22/18 20:25 Lymphocytes # 2.6 K/mcL (0.6-4.6) 04/22/18 20:25 Monocytes # 0.5 K/mcL (0.0-1.3) 04/22/18 20:25 Eosinophils # 0.1 K/mcL (0.0-0.6) 04/22/18 20:25 Basophils # 0.0 K/mcL (0.0-0.2) 04/22/18 20:25 Sodium 139 mEq/L (136-145) 04/22/18 20:25 Potassium 4.3 mEq/L (3.5-5.1) 04/22/18 20:25 Chloride 106 mEq/L (98-107) 04/22/18 20:25 Carbon Dioxide 26 mEq/L (23-29) 04/22/18 20:25 BUN 12 mg/dL (6-20) 04/22/18 20:25 Creatinine 0.74 mg/dL (0.60-1.20) 04/22/18 20:25 Est GFR ( Amer) > 60 (> 60) 04/22/18 20:25 Est GFR (Non-Af Amer) > 60 (> 60) 04/22/18 20:25 BUN/Creatinine Ratio 16 (6-26) 04/22/18 20:25 Glucose 113 mg/dL (70-105) H 04/22/18 20:25 Calculated Osmolality 289 (280-300) 04/22/18 20:25 Calcium 9.7 mg/dL (8.6-10.3) 04/22/18 20:25 Urine Color Yellow (Yellow) 04/22/18 19:20 Urine Clarity Cloudy (Clear) A 04/22/18 19:20 Urine pH 6.0 pH Units (5.0-8.0) 04/22/18 19:20 Ur Specific Thayer 1.023 (1.010-1.025) 04/22/18 19:20 Urine Protein Trace mg/dL (Neg-Trace) 04/22/18 19:20 Urine Glucose (UA) Normal mg/dL (Normal) 04/22/18 19:20 Urine Ketones Negative mg/dL (Negative) 04/22/18 19:20 Urine Blood Negative (Negative) 04/22/18 19:20 Urine Nitrite Positive (Negative) A 04/22/18 19:20 Urine Bilirubin Negative (Negative) 04/22/18 19:20 Urine Urobilinogen Normal mg/dL (Normal) 04/22/18 19:20 Ur Leukocyte Esterase Moderate (Negative) H 04/22/18 19:20 Urine Microscopic RBC 5-15 per hpf (0-3) H 04/22/18 19:20 Urine Microscopic WBC TNTC per hpf (0-3) H 04/22/18 19:20 Ur Squamous Epith Cells Many per lpf (None-Few) H 04/22/18 19:20 Urine Bacteria Many per hpf (None-Few) H 04/22/18 19:20 Hyaline Casts None Seen per lpf (None-Few) 04/22/18 19:20 Salicylates < 2.5 mg/dL (15.0-30.0) L 04/22/18 20:25 Urine Opiates Screen Negative ng/mL (Gzmhef=689) 04/22/18 19:20 Acetaminophen < 10 mcg/mL (10-20) L 04/22/18 20:25 Ur Barbiturates Screen Negative ng/mL (Nqwmcd=498) 04/22/18 19:20 Ur Phencyclidine Scrn Negative ng/mL (Cutoff=25) 04/22/18 19:20 Ur Amphetamines Screen Negative ng/mL (Uouhmt=0268) 04/22/18 19:20 U Benzodiazepines Scrn Negative ng/mL (Ikdvov=891) 04/22/18 19:20 Urine Cocaine Screen Negative ng/mL (Cutoff= 300) 04/22/18 19:20 U Marijuana (THC) Screen Negative ng/mL (Cutoff = 50) 04/22/18 19:20 Ur Drug Screen Interp See Below 04/22/18 19:20 Ethyl Alcohol < 10 mg/dL (Less than 10) 04/22/18 20:25 Assessment and Plan (1) Major depression with psychotic features Current visit: Yes Status: Acute Plan: Admit inpatient for safety and stabilization, Close observation, Suicide Precautions per unit protocol, Encourage participation in unit milieu, Group Therapy, Monitor sleep, Monitor appetite Risks, benefits, side effects, alternatives discussed w/pt: Yes Patient agreeable to treatment: Yes Plans for Post Hospital Care: Home Estimated Length of Stay (Days): 4
[2018-04-23] MEDS: risperiDONE 0.25 MG TABLET PO SCH ×2 (12:02→20:36)
[2018-04-24] MEDS: risperiDONE 0.25 MG TABLET PO SCH (09:29)
--- NOTE | 2018-04-24 10:47 | Psychiatry Progress Note ---
Date of Encounter: 04/24/18 Time of Encounter: 10:43 Subjective Interval history: Client reports she is feeling a little better. AH still present but less bothersome. Still has anxiety and paranoia. Thinks someone is after her or wants to hurt her but does not know who or why. Sleeping in bed when this insurance underwriter sales approached her yesterday. Very alarmed when she first awoke. It was clear she had an exaggerated startle to this insurance underwriter sales's presence. Spent most of yesterday isolating in room. Trying to come out more and attend groups today. States she is shy. Guarded with nervous hand wringing but does seem a bit better than yesterday. Will likely need the weekend before safe for discharge. Review of Systems Constitutional: Denies: fever, chills, weakness, weight change Eyes: Denies: eye pain, vision change Ears, Nose, Throat: Denies: ear pain, throat pain, dental pain, hearing loss, congestion Cardiovascular: Denies: chest pain, palpitations, dyspnea on exertion Respiratory: Denies: cough, dyspnea, wheezes Gastrointestinal: Denies: abdominal pain, nausea, vomiting, diarrhea, constipation Musculoskeletal: Denies: joint swelling, joint pain Neurological: Denies: headache, weakness, numbness, memory loss Results - Vital Signs Vital Signs: Temp Pulse Resp BP Pulse Ox 98.2 F 83 16 122/73 98 04/23/18 20:24 04/23/18 20:24 04/23/18 20:24 04/23/18 20:24 04/23/18 20:24 Assessment and Plan (1) Major depression with psychotic features Current visit: Yes Status: Acute Plan: Continue hospitalization, Close observation, Suicide Precautions per unit protocol, Encourage participation in unit milieu, Group Therapy, Monitor sleep, Monitor appetite Risks, benefits, side effects, alternatives discussed w/pt: Yes Patient agreeable to treatment: Yes Consult Discharge Plan - Plan Referrals: NONE,PCP [Primary Care Provider] - Psychiatry Exam - Constitutional Vitals: Temp Pulse Resp BP Pulse Ox 98.2 F 83 16 122/73 98 04/23/18 20:24 04/23/18 20:24 04/23/18 20:24 04/23/18 20:24 04/23/18 20:24 General appearance: thin - Musculoskeletal Gait: normal Station: relaxed Strength & Tone: normal for patient - Psychiatric Patient Orientation: Yes Person, Yes Time, Yes Place Level of alertness: Alert Behavior: calm, cooperative Psychomotor activity: Normal Eye Contact: Maintains Eye Contact Mood Description: Anxious Affect description: congruent with mood Speech Volume: Normal Speech pattern: normal rate, normal rhythm, normal tone, fluent, spontaneous Language & Vocabulary: consistent with education Thought Process: Linear Thought Content: No Suicidal ideation, No Homicidal ideation, Yes Paranoid delusion Perceptual Disturbances: No Reacting to internal stimuli, Yes Auditory hallucinations Attention Span Ability: Capable of Focused Attention Memory Description: Grossly Intact Patient Reliability: Reliable Historian Fund of knowledge: Yes abstraction ability, Yes aware of current events Intelligence Estimate: Average Judgment: Fair Insight: Partial
[2018-04-24] MEDS: risperiDONE 1 MG TABLET PO SCH (20:29)
[2018-04-24] MEDS: Nitrofurantoin (BID) 100 MG CAPSULE PO SCH (20:31)
[2018-04-25] MEDS: Nitrofurantoin (BID) 100 MG CAPSULE PO SCH ×2 (09:23→18:29)
[2018-04-25] MEDS: risperiDONE 1 MG TABLET PO SCH ×2 (09:23→20:16)
--- NOTE | 2018-04-25 09:47 | Psychiatry Progress Note ---
Date of Encounter: 04/25/18 Time of Encounter: 09:43 Subjective Interval history: Client states she is starting to feel better. Continues to hear voices through the TV and radio but states they are less intense and less frequent. Still has vague paranoid thoughts that someone wishes her harm but client states this is better as well. Continues to be visibly anxious but she is forcing herself to come out of her room and attend groups. Remains somewhat guarded. Answers questions but not a lot of content in her responses. Denies SI/HI. Pleasant but still has some confusion as to why she is here. Will likely need to stay through the weekend. Will continue to titrate meds for clinical effect. Review of Systems Constitutional: Denies: fever, chills, weakness, weight change Eyes: Denies: eye pain, vision change Ears, Nose, Throat: Denies: ear pain, throat pain, dental pain, hearing loss, congestion Cardiovascular: Denies: chest pain, palpitations, dyspnea on exertion Respiratory: Denies: cough, dyspnea, wheezes Gastrointestinal: Denies: abdominal pain, nausea, vomiting, diarrhea, constipation Musculoskeletal: Denies: joint swelling, joint pain Neurological: Denies: headache, weakness, numbness, memory loss Results - Vital Signs Vital Signs: Temp Pulse Resp BP Pulse Ox 98.4 F 111 18 136/100 97 04/24/18 19:55 04/24/18 19:55 04/24/18 19:55 04/24/18 19:55 04/24/18 19:55 Assessment and Plan (1) Major depression with psychotic features Current visit: Yes Status: Acute Plan: Continue hospitalization, Close observation, Suicide Precautions per unit protocol, Encourage participation in unit milieu, Group Therapy, Monitor sleep, Monitor appetite Risks, benefits, side effects, alternatives discussed w/pt: Yes Patient agreeable to treatment: Yes Consult Discharge Plan - Plan Referrals: [facility] [place] [Outside] - 05/04/18 2:00 pm (You have an appointment scheduled with your counselor Rebecca on May 04 at 2:00 PM. You have an appointment scheduled with Alysha Dunn CNP on May 05 at 8:30 AM for medication management.) Psychiatry Exam - Constitutional Vitals: Temp Pulse Resp BP Pulse Ox 98.4 F 111 18 136/100 97 04/24/18 19:55 04/24/18 19:55 04/24/18 19:55 04/24/18 19:55 04/24/18 19:55 General appearance: thin - Musculoskeletal Gait: normal Station: relaxed Strength & Tone: normal for patient - Psychiatric Patient Orientation: Yes Person, Yes Time, Yes Place Level of alertness: Alert Behavior: calm, cooperative Psychomotor activity: Normal Eye Contact: Maintains Eye Contact Mood Description: Depressed, Anxious Affect description: congruent with mood Speech Volume: Normal Speech pattern: normal rate, normal rhythm, normal tone, fluent, spontaneous Language & Vocabulary: consistent with education Thought Process: Linear Thought Content: No Suicidal ideation, No Homicidal ideation, Yes Paranoid delusion Perceptual Disturbances: Yes Auditory hallucinations Attention Span Ability: Capable of Focused Attention Memory Description: Grossly Intact Patient Reliability: Reliable Historian Fund of knowledge: Yes abstraction ability, Yes aware of current events Intelligence Estimate: Average Judgment: Fair Insight: Partial
[2018-04-25] MEDS: traZODone 50 MG TABLET PO PRN (20:16)
[2018-04-25] MEDS: hydrOXYzine pamoate 25 MG CAPSULE PO PRN (20:18)
--- NOTE | 2018-04-26 08:57 | Psychiatry Progress Note ---
Date of Encounter: 04/26/18 Time of Encounter: 08:51 Subjective Interval history: Client reports she is feeling a little better. Clinically she looks the same. Pleasant but anxious. Denies SI/HI. Continues to hear AH through the TV and radio but states voices are less frequent and less bothersome. Unable to tell this auto service writer what the voices say. Forces herself to be out of her room. However, she will sit alone and color. No real interaction with staff or peers. Answers to questions are short and without real content. She is not good at conveying information. Family visited last night and client reports the visit went well and they played cards. Denies feeling like her family wants to hurt her now but she still has a paranoid edge. Does not appear to be a threat to herself or others and can likely go home early this week. However, she would benefit from at least another night in the hospital. Review of Systems Constitutional: Denies: fever, chills, weakness, weight change Eyes: Denies: eye pain, vision change Ears, Nose, Throat: Denies: ear pain, throat pain, dental pain, hearing loss, congestion Cardiovascular: Denies: chest pain, palpitations, dyspnea on exertion Respiratory: Denies: cough, dyspnea, wheezes Gastrointestinal: Denies: abdominal pain, nausea, vomiting, diarrhea, constipation Musculoskeletal: Denies: joint swelling, joint pain Neurological: Denies: headache, weakness, numbness, memory loss Results - Vital Signs Vital Signs: Temp Pulse Resp BP Pulse Ox 98.1 F 97 16 135/85 99 04/25/18 20:02 04/25/18 20:02 04/25/18 20:02 04/25/18 20:02 04/25/18 20:02 Assessment and Plan (1) Major depression with psychotic features Current visit: Yes Status: Acute Plan: Continue hospitalization, Close observation, Suicide Precautions per unit protocol, Encourage participation in unit milieu, Group Therapy, Monitor sleep, Monitor appetite Risks, benefits, side effects, alternatives discussed w/pt: Yes Patient agreeable to treatment: Yes Consult Discharge Plan - Plan Referrals: [facility] [Outside] - 05/04/18 2:00 pm (You have an appointment scheduled with your counselor Rebecca on May 04 at 2:00 PM. You have an appointment scheduled with Alysha Dunn CNP on May 05 at 8:30 AM for medication management.) Psychiatry Exam - Constitutional Vitals: Temp Pulse Resp BP Pulse Ox 98.1 F 97 16 135/85 99 04/25/18 20:02 04/25/18 20:02 04/25/18 20:02 04/25/18 20:02 04/25/18 20:02 General appearance: thin - Musculoskeletal Gait: normal Station: relaxed Strength & Tone: normal for patient - Psychiatric Patient Orientation: Yes Person, Yes Time, Yes Place Level of alertness: Alert Behavior: calm, cooperative Psychomotor activity: Normal Eye Contact: Maintains Eye Contact Mood Description: Anxious Affect description: congruent with mood Speech Volume: Normal Speech pattern: limited Language & Vocabulary: consistent with education Thought Process: Evasive Thought Content: No Suicidal ideation, No Homicidal ideation, No Overt delusions Perceptual Disturbances: Yes Auditory hallucinations Attention Span Ability: Capable of Focused Attention Memory Description: Grossly Intact Patient Reliability: Reliable Historian Fund of knowledge: Yes abstraction ability, Yes aware of current events Intelligence Estimate: Below Average Judgment: Fair Insight: Partial
[2018-04-26] MEDS: risperiDONE 1 MG TABLET PO SCH ×2 (08:59→21:37)
[2018-04-26] MEDS: Nitrofurantoin (BID) 100 MG CAPSULE PO SCH ×2 (09:00→16:39)
[2018-04-26] MEDS: hydrOXYzine pamoate 25 MG CAPSULE PO PRN (21:38)
[2018-04-26] MEDS: traZODone 50 MG TABLET PO PRN (21:38)
[2018-04-27] MEDS: risperiDONE 1 MG TABLET PO SCH ×2 (08:31→20:45)
[2018-04-27] MEDS: Nitrofurantoin (BID) 100 MG CAPSULE PO SCH ×2 (08:31→17:06)
--- NOTE | 2018-04-27 09:04 | Psychiatry Progress Note ---
Date of Encounter: 04/27/18 Time of Encounter: 09:01 Subjective Interval history: Patient reports she is tolerating medications well. She denies any side effects. She says her sleep is good. She reports she is still experiencing some auditory and visual hallucinations though they have improved. She still seems to have some confusion had difficulty when I asked for her last name and stated both first and last name. Seemed to have some slowing of her thinking. She reports that when she leaves she will go and stay at her mother's home which is safe. She denies suicidal ideations. Review of Systems Neurological: Denies: headache, weakness, numbness, memory loss Psychiatric: Reports: auditory hallucinations, visual hallucinations, confusion Results - Vital Signs Vital Signs: Temp Pulse Resp BP Pulse Ox 98.7 F 107 18 124/91 95 04/27/18 08:54 04/27/18 08:54 04/27/18 08:54 04/27/18 08:54 04/27/18 08:54 Assessment and Plan (1) Major depression with psychotic features Current visit: Yes Status: Acute Plan: Continue hospitalization, Close observation, Suicide Precautions per unit protocol, Encourage participation in unit milieu, Group Therapy, Monitor sleep, Monitor appetite, Secure weapons Additional Plan: Patient was agreeable to signing in voluntarily for a few more days of stabilization. She is currently tolerating medications well but still having some residual psychotic symptoms. I will consider increasing her Risperdal if these do not resolve. Risks, benefits, side effects, alternatives discussed w/pt: Yes Patient agreeable to treatment: Yes Consult Discharge Plan - Plan Referrals: [facility] [place] [Outside] - 05/04/18 2:00 pm (You have an appointment scheduled with your counselor Rebecca on May 04 at 2:00 PM. You have an appointment scheduled with Alysha Dunn CNP on May 05 at 8:30 AM for medication management.) Psychiatry Exam - Constitutional Vitals: Temp Pulse Resp BP Pulse Ox 98.7 F 107 18 124/91 95 04/27/18 08:54 04/27/18 08:54 04/27/18 08:54 04/27/18 08:54 04/27/18 08:54 General appearance: unkempt, disheveled Additional observations: Edentulous - Musculoskeletal Gait: slow Station: slouched Strength & Tone: normal for patient - Psychiatric Patient Orientation: Yes Person, Yes Time, Yes Place Level of alertness: Alert Behavior: distractible Psychomotor activity: Slowed Eye Contact: Minimal Contact Patient description of mood: "Okay" Affect description: blunted Speech Volume: Soft/Quiet Speech pattern: slurred Language & Vocabulary: consistent with education Thought Process: Disorganized Thought Content: No Suicidal ideation, No Homicidal ideation, No Overt delusions Perceptual Disturbances: Yes Auditory hallucinations, Yes Visual hallucinations Attention Span Ability: Unable to Sustain Attention Memory Description: Grossly Intact Patient Reliability: Questionable Historian Fund of knowledge: Yes average Intelligence Estimate: Average Judgment: Limited Insight: Minimal
[2018-04-27] MEDS: hydrOXYzine pamoate 25 MG CAPSULE PO PRN (20:45)
[2018-04-27] MEDS: traZODone 50 MG TABLET PO PRN (20:45)
[2018-04-28] MEDS: risperiDONE 1 MG TABLET PO SCH ×2 (08:55→21:00)
[2018-04-28] MEDS: Nitrofurantoin (BID) 100 MG CAPSULE PO SCH ×2 (08:55→16:23)
--- NOTE | 2018-04-28 18:20 | Psychiatry Progress Note ---
Date of Encounter: 04/28/18 Time of Encounter: 08:10 Subjective Interval history: Patient doing well. No SI no HI. No psychosis. Mood stable. tolerating medications. future oriented. Review of Systems Psychiatric: Denies: suicidal ideation, auditory hallucinations, visual hallucinations Results - Vital Signs Vital Signs: Temp Pulse Resp BP Pulse Ox 97.7 F 114 16 118/83 97 04/28/18 09:00 04/28/18 09:00 04/28/18 09:00 04/28/18 09:00 04/28/18 09:00 Assessment and Plan (1) Major depression with psychotic features Current visit: Yes Status: Acute Plan: Continue hospitalization, Encourage participation in unit milieu, Group Therapy, Monitor sleep, Monitor appetite Additional Plan: continue meds, likely d/c tomorrow Risks, benefits, side effects, alternatives discussed w/pt: Yes Patient agreeable to treatment: Yes Consult Discharge Plan - Plan Referrals: [facility] [place] [Outside] - 05/04/18 2:00 pm (You have an appointment scheduled with your counselor Rebecca on May 04 at 2:00 PM. You have an appointment scheduled with Alysha Dunn CNP on May 05 at 8:30 AM for medication management.) Psychiatry Exam - Constitutional Vitals: Temp Pulse Resp BP Pulse Ox 97.7 F 114 16 118/83 97 04/28/18 09:00 04/28/18 09:00 04/28/18 09:00 04/28/18 09:00 04/28/18 09:00 General appearance: age & developmentally appropriate - Musculoskeletal Gait: normal Station: relaxed Strength & Tone: normal for patient - Psychiatric Patient Orientation: Yes Person, Yes Time, Yes Place Level of alertness: Alert Behavior: calm, cooperative Psychomotor activity: Normal Eye Contact: Maintains Eye Contact Mood Description: Euthymic/stable Patient description of mood: "ok" Affect description: congruent with mood, full range Speech Volume: Normal Speech pattern: normal rate, normal rhythm, normal tone, fluent, spontaneous Language & Vocabulary: consistent with education Thought Process: Linear, Goal Oriented Thought Content: No Suicidal ideation, No Homicidal ideation, No Overt delusions Perceptual Disturbances: No Auditory hallucinations, No Visual hallucinations Attention Span Ability: Capable of Focused Attention Memory Description: Grossly Intact Patient Reliability: Reliable Historian Fund of knowledge: Yes abstraction ability, Yes aware of current events Intelligence Estimate: Average Judgment: Fair Insight: Partial
[2018-04-28] MEDS: traZODone 50 MG TABLET PO PRN (21:00)
[2018-04-28] MEDS: hydrOXYzine pamoate 25 MG CAPSULE PO PRN (21:00)
[2018-04-29 09:15] VITALS: BP 118/80
[2018-04-29] MEDS: risperiDONE 1 MG TABLET PO SCH (09:17)
[2018-04-29] MEDS: Nitrofurantoin (BID) 100 MG CAPSULE PO SCH (09:17)
--- NOTE | 2018-04-29 09:18 | Discharge Summary ---
Date of Encounter: 04/29/18 Time of Encounter: 09:14 Diagnosis - Discharge Diagnosis (1) Major depression with psychotic features Status: Acute Medications - Discharge Medications Prescriptions: hydrOXYzine pamoate [HydrOXYzine Pamoate] 25 mg PO TID PRN #90 capsule PRN Reason: Anxiety risperiDONE [RisperDAL] 1 mg PO BID #60 tablet Sertraline [Zoloft] 100 mg PO DAILY #30 tablet traZODone [TraZODone] 50 mg PO HS PRN 30 Days tablet PRN Reason: Insomnia Gabapentin [Neurontin] 600 mg PO TID 03/22/18 [History] Propranolol HCl 40 mg PO TID 03/22/18 [History] Nitrofurantoin Monohyd/M-Cryst [Macrobid 100 mg Capsule] 100 mg PO BID #14 capsule 04/23/18 [Rx] Nitrofurantoin (BID) [Macrobid] 100 mg PO BIDWM capsule 04/29/18 [Rx] Sertraline [Zoloft] 100 mg PO DAILY #30 tablet 04/29/18 [Rx] hydrOXYzine pamoate [HydrOXYzine Pamoate] 25 mg PO TID PRN #90 capsule 04/29/18 [Rx] risperiDONE [RisperDAL] 1 mg PO BID #60 tablet 04/29/18 [Rx] traZODone [TraZODone] 50 mg PO HS PRN 30 Days tablet 04/29/18 [Rx] Allergy/AdvReac Type Severity Reaction Status Date / Time No Known Allergies Allergy Verified 04/23/18 14:11 Results Procedures and tests throughout hospitalization: Completed Lab Orders Category Date Time Status Acetaminophen Stat Lab 04/22/18 20:25 Completed Basic Metabolic Panel Stat Lab 04/22/18 20:25 Completed Complete Blood Count [HEME] Stat Lab 04/22/18 20:25 Completed Drug Screen, Urine [UCHEM] Stat Lab 04/22/18 19:20 Completed Ethanol Stat Lab 04/22/18 20:25 Completed Salicylate Stat Lab 04/22/18 20:25 Completed Urinalysis reflex Microscopic [URIN] Stat Lab 04/22/18 19:20 Completed Provider Date of admission: 04/23/18 02:01 Primary care physician: PCP NONE Discharging clinician: Razia Akbar Psychiatry Exam - Constitutional Vitals: Temp Pulse Resp BP Pulse Ox 98.2 F 120 18 116/80 98 04/28/18 21:00 04/28/18 21:00 04/28/18 21:00 04/28/18 21:00 04/28/18 21:00 Additional observations: Patient is alert and oriented [address] time and situation, muscle tone grossly intact, speech normal limits for rhythm, rate, content and volume. Muscle tone is normal for patient. Grooming and hygiene are appropriate and eye contact is maintained appropriately. The patient appears age appropriate. Behavior is cooperative. Thought content is negative for suicidal or homicidal thoughts ideations or plans. There are no hallucinations or delusions. Mood is good and affect is reactive, consistent and congruent. Thought process is linear, logical, goal oriented and coherent thought. Memory is intact to recent and remote as the patient is able to recall several items after a delay and can consistently recall childhood information. Language and vocabulary are consistent with education and intelligence is estimated to be average based on education and general fund of information. Concentration and attention are sustained and appropriate. Insight and judgment are intact as the patient agrees with her diagnosis and the need for ongoing mental health treatment. Hospital Course Hospital course: Ms. Bello is a 37 year old female who was admitted for depression and suicidal ideations. She was started on Zoloft with when necessary trazodone.Patient was educated of diagnosis and the risk-benefit side effects of this alternative treatment options and was monitored for responsiveness and side effects. Mood anxiety sleep and appetite interest improved as did future orientation. Self- harm thoughts subsided, thinking cleared, psychosis resolved, and mood stabilized. Patient was able to attend both individual and group therapy sessions as well as meeting with the psychiatrist daily and urged to discuss any medication or treatment issues or other concerns. The patient was educated primarily by verbal means about their diagnosis and manifestations in their life. The option for treatment including group and individual therapy programming was offered to the patient in the use of medications with all their potential risks, benefits, and side effects were discussed with the patient at length. The patient was given the opportunity to ask questions and was noted to participate in the treatment in the planning process. The patient felt ready and eager to be discharged from the inpatient psychiatric unit to continue on with treatment as an outpatient. The patient agreed that is they were safe for this disposition. The patient was considered to be able to participate in informed consent and decision making with respect to medical, legal, and financial issues of the time of discharge. At the time of discharge the patient adamantly denied any concerns for lethality including suicidal or homicidal thoughts ideations or plans and was future oriented toward ongoing mental health care, medical follow-up and sobriety. Time spent discussing smoking cessation with patient: 3 to 10 minutes Does patient wish to continue nicotine replacement upon disc: No - Time Spent with Patient Total time spent providing and/or coordinating discharge services: Less than 30 minutes (Interval history reviewed. Available labs reviewed . Psychotherapy provided. Patient had an opportunity to ask questions and address concerns. Patient was in agreement with the treatment plan. The risks benefits and side effects of medications were discussed with the patient, including alternatives and treatment. The patient was educated on the abstaining from any alcohol or illicit substances, following up with all scheduled appointments, and taking all medications as prescribed. The patient was educated on 90 meetings in 90 days and to find a sponsor.) Assessment and Plan - Patient/Caregiver Discharge Instructions Activity: resume usual activities as tolerated Diet: regular diet Additional Instructions: Continue current medications. Follow up with outpatient mental health. Encourage continued therapy in a group or individual setting. The patient was discharged to home. - Follow up Plan Follow up with: [facility] [Other] (If you require transportation to any of your appointments you may arrange this either through your insurance provider or through [facility]. Please be aware that transportation services must be prior authorized through your insurance company which can take anywhere from 2-5 business days for processing. Please call the member services number located on the back of your insurance card or contact [facility] at the above number to schedule a ride. [employer] [address] [place], [place] [address] Email: [email or web address] ) [facility] [place] [Outside] - 05/04/18 2:00 pm (You have an appointment scheduled with your counselor Rebecca on May 04 at 2:00 PM. You have an appointment scheduled with Alysha Dunn CNP on at 8:30 AM for medication management.) Functional capacity at discharge: independent ambulation Overall status at discharge: Stable Disposition: Home, Self-Care Quality - Multiple Antipsychotics Patient discharged on 2 or more antipsychotic medications: No Procedures - Procedures Procedures: Medication Management, Crisis Stabilization, Supportive Therapy, Group Therapy, Psychoeducational Therapy
== END 2018-04-29 12:35 | disposition home or self-care (01) | DRG 751 ==
LOC: EMEROOARM 18:56 → 1ANU 18:56 → SUATTDRO 04-23 02:01 → 1ANU 04-23 02:40
PROVIDERS: ADMIT Psychiatry & Neurology Psychiatry; ATTEND Psychiatry & Neurology Psychiatry